=== PATIENT | male | born 1940 | race Caucasian/White ===

== ENCOUNTER 2021-01-29 12:18 | Emergency (ER) | payer OTHER, MEDICARE ==
[2021-01-29 12:33] VITALS: BP 146/72; TEMP 97.8
--- NOTE | 2021-01-29 13:09 | ED ---
Extremity Problem HPI - General Chief complaint: Extremity Problem,Nontraumatic Stated complaint: L hand swelling Time Seen by Provider: 01/29/21 12:57 Source: patient, RN notes reviewed Mode of arrival: ambulatory Limitations: no limitations - History of Present Illness Initial comments: Patient is a 80-year-old male presented to the ED for left hand swelling. 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 Patient states that this Sunday had follow-up appointment to workup contracture, at appointment through traction and ROM skin break at fifth digit and pad of hand occurred. Patient states that after this appointment extremity was painful with increased edema and warmth. Patient reports tenderness and swelling of the anterior aspect of arm and axilla. Patient states pain is bearable discomfort with no other voice concerns at this time. - Related Data Home Medications Medication Instructions Recorded Confirmed Losartan [Cozaar] 25 mg PO DAILY 12/16/13 12/16/13 Simvastatin [Zocor] 20 mg PO HS 12/16/13 12/16/13 Tamsulosin [Flomax] 0.4 mg PO HS 12/16/13 12/16/13 amLODIPine BESYLATE [Norvasc] 10 mg PO DAILY 12/16/13 12/16/13 Previous Rx's Medication Instructions Recorded Meclizine [Antivert] 25 mg PO BID #20 tab 12/16/13 Cephalexin [Keflex] 500 mg PO Q6HR #40 cap 01/29/21 Allergies Allergy/AdvReac Type Severity Reaction Status Date / Time Sulfa (Sulfonamide AdvReac Rash/Hives Verified 01/29/21 12:33 Antibiotics) Review of Systems ROS Statement: Those systems with pertinent positive or pertinent negative responses have been documented in the HPI. ROS Other: All systems not noted in ROS Statement are negative. Past Medical History Past Medical History: Hyperlipidemia, Hypertension Additional Past Medical History / Comment(s): prostate ca, non hodkins lymphoma remission History of Any Multi-Drug Resistant Organisms: None Reported Past Surgical History: Appendectomy Additional Past Surgical History / Comment(s): prostate, skin ca, dubutren's contracture repair Past Psychological History: No Psychological Hx Reported Past Alcohol Use History: Occasional Past Drug Use History: None Reported General Exam Limitations: no limitations Respiratory exam: Present: normal lung sounds bilaterally. Absent: respiratory distress, wheezes, rales, rhonchi, stridor Cardiovascular Exam: Present: regular rate, normal rhythm, normal heart sounds. Absent: systolic murmur, diastolic murmur, rubs, gallop, clicks Extremities exam: Present: other (Left arm swelling noted, there is no opening at the MCP region of the fifth digit minimal warmth increase Refill less than 2 seconds neurovascular exam) Course Vital Signs 01/29/21 12:28 Temperature 97.8 F Pulse Rate 76 Respiratory 18 Rate Blood Pressure 146/72 O2 Sat by Pulse 98 Oximetry Medical Decision Making - Medical Decision Making Patient has mild swelling to the left arm may related to recent procedure there is no opening to the skin for concerns of infection labs unremarkable patient will receive oral antibiotics, initial dose of IV antibiotics will have close monitoring return parameters were discussed. - Lab Data Result diagrams: 01/29/21 13:18 01/29/21 13:18 Lab Results 01/29/21 01/29/21 Range/Units 13:18 13:18 WBC 5.0 (3.8-10.6) k/uL RBC 4.52 (4.30-5.90) m/uL Hgb 13.9 (13.0-17.5) gm/dL Hct 40.8 (39.0-53.0) % MCV 90.4 (80.0-100.0) fL MCH 30.8 (25.0-35.0) pg MCHC 34.1 (31.0-37.0) g/dL RDW 13.5 (11.5-15.5) % Plt Count 247 (150-450) k/uL MPV 8.0 Neutrophils % 39 % Lymphocytes % 48 % Monocytes % 4 % Eosinophils % 6 % Basophils % 1 % Neutrophils # 2.0 (1.3-7.7) k/uL Lymphocytes # 2.4 (1.0-4.8) k/uL Monocytes # 0.2 (0-1.0) k/uL Eosinophils # 0.3 (0-0.7) k/uL Basophils # 0.0 (0-0.2) k/uL Sodium 138 (137-145) mmol/L Potassium 4.0 (3.5-5.1) mmol/L Chloride 104 (98-107) mmol/L Carbon Dioxide 25 (22-30) mmol/L Anion Gap 9 mmol/L BUN 14 (9-20) mg/dL Creatinine 0.82 (0.66-1.25) mg/dL Est GFR (CKD-EPI)AfAm >90 (>60 ml/min/1.73 sqM) Est GFR (CKD-EPI)NonAf 83 (>60 ml/min/1.73 sqM) Glucose 102 H (74-99) mg/dL Calcium 9.9 (8.4-10.2) mg/dL Disposition Clinical Impression: Left arm swelling Disposition: HOME SELF-CARE Condition: Stable Instructions (If sedation given, give patient instructions): Cellulitis (ED) Additional Instructions: Please return to the Emergency Department if symptoms worsen or any other concerns. Prescriptions: Cephalexin [Keflex] 500 mg PO Q6HR #40 cap Is patient prescribed a controlled substance at d/c from ED?: No Referrals: Nonstaff,Physician [Primary Care Provider] - 1-2 days Time of Disposition: 14:30
[2021-01-29 13:39] LABS: Basophils % (A) 1 %; Eosinophils # (A) 0.3 k/uL (0-0.7); Eosinophils % (A) 6 %; HCT 40.8 % (39.0-53.0); HGB 13.9 gm/dL (13.0-17.5); Lymphocytes # (A) 2.4 k/uL (1.0-4.8); Lymphocytes % (A) 48 %; MCH 30.8 pg (25.0-35.0); MCHC 34.1 g/dL (31.0-37.0); MCV 90.4 fL (80.0-100.0); Monocytes # (A) 0.2 k/uL (0-1.0); Monocytes % (A) 4 %; Neutrophils % (A) 39 %; Platelet Count 247 k/uL (150-450); RBC 4.52 m/uL (4.30-5.90); RDW 13.5 % (11.5-15.5)
[2021-01-29 13:52] LABS: African American GFR (CKD) >90 (>60 ml/min/1.73 sqM); Anion Gap 9 mmol/L; Blood Urea Nitrogen 14 mg/dL (9-20); Calcium 9.9 mg/dL (8.4-10.2); Carbon Dioxide 25 mmol/L (22-30); Chloride 104 mmol/L (98-107); Glucose 102 mg/dL (74-99); Non-African American GFR(CKD) 83 (>60 ml/min/1.73 sqM); Sodium 138 mmol/L (137-145)
[2021-01-29] MEDS ORDERED: cefTRIAXone IN SWFI 1,000 MG/10 ML SYRINGE IVP STA (14:30)
[2021-01-29 14:53] VITALS: PULSE 68; RESP 16
== END 2021-01-29 14:53 | disposition home or self-care (01) ==
LOC: EC 12:18
DX: R22.32 Localized swelling, mass and lump, left upper limb (principal); I10 Essential (primary) hypertension; E78.5 Hyperlipidemia, unspecified; Z88.2 Allergy status to sulfonamides; Z90.49 Acquired absence of other specified parts of digestive tract
CPT/HCPCS: 99283; 96374; 36415; 80048; 85025; 87040; J0696